=== PATIENT | male | born 1985 | race Caucasian/White ===

== ENCOUNTER 2020-12-28 11:17 | Emergency (ER) | payer BC ==
[2020-12-28] MEDS ORDERED: BACTRIM DS TAB1 EACH PO (12:50)
[2020-12-28] MEDS ORDERED: CEPHALEXIN500 M1 PO (12:50)
== END 2020-12-28 13:20 | disposition home or self-care (01) ==
LOC: ER1 11:17
DX: L08.9 Local infection of the skin and subcutaneous tissue, unspecified (principal); Z90.89 Acquired absence of other organs; Z88.5 Allergy status to narcotic agent; Z88.0 Allergy status to penicillin
CPT/HCPCS: 99283